=== PATIENT | male | born 2000 | race Caucasian/White ===

== ENCOUNTER 2022-06-13 10:33 | Emergency (ER) | payer OTHER, SELFPAY ==
[2022-06-13 11:00] VITALS: BP 146/82; PULSE 76; RESP 18; TEMP 36.6; O2SAT 98; BMI 32.3
--- NOTE | 2022-06-13 11:39 | ED_ITS ---
HPI - Skin/Abscess/Foreign Bdy General Chief complaint: Skin/Abscess/Foreign Body Stated complaint: L leg spider bite Time Seen by Provider: 06/13/22 11:35 Source: patient Mode of arrival: ambulatory History of Present Illness HPI narrative: 22-year-old male with no significant past medical history presenting to the ED complaining of suspected insect or spider bite to left knee x3 days. Reports was small kiran yesterday which tried to pop it himself at home. Denies fever, chills, joint pain, decreased ROM, numbness, tingling MD complaint: insect bite/sting and abscess/boil Related Data Previous Rx's Medication Instructions Recorded cephalexin 500 mg capsule 500 mg PO QID 7 days #28 caps 06/13/22 doxycycline hyclate 100 mg tablet 100 mg PO BID 7 days #14 tabs 06/13/22 Allergies Allergy/AdvReac Type Severity Reaction Status Date / Time No Known Allergies Allergy Verified 06/13/22 11:00 Review of Systems Review of Systems: Constitutional: No Weight loss, No Fever, No Chills ENT/Mouth: No Ear Pain, No Nasal Congestion, No sore throat, No Rhinorrhea, No Swallowing Difficulty Cardiovascular: No Chest Pain, No SOB Respiratory: No Cough, No Sputum, No Wheezing Gastrointestinal: No Nausea, No Vomiting, No Diarrhea, No Constipation, No Abdominal pain Genitourinary: No Dysuria, No Urinary Frequency, No Hematuria, No Flank Pain Musculoskeletal: No joint pain, No Myalgias, No Joint Swelling Skin: + Skin Lesions, No rash Neuro: No Weakness, No Numbness, No Paresthesias Yes all other systems are reviewed and are negative Constitutional: Constitutional: Reports as per [facility] Past Medical History Attestation statement: The following information was validated with the patient. Social History Social History Advance Directives: No Advance Directives Information Provided: No Physical Exam Vital Signs: Vital Signs: Last Vital Signs Temp 97.8 F 06/13/22 11:00 Pulse 76 06/13/22 11:00 Resp 18 06/13/22 11:00 BP 146/82 H 06/13/22 11:00 Pulse Ox 98 06/13/22 11:00 O2 Del Method 06/13/22 11:00 BMI result Body Mass Index 32.3 Const: General: cooperative, healthy appearing and no acute distress Orientation/consciousness: patient oriented x3 Limitations: no limitations HEENT: Head: Yes normal to inspection and Yes atraumatic Ears: hearing grossly normal bilaterally General nose exam: Normal external nose present Face and sinus: Yes normal facial exam Eyes: General: appearance normal, both eyes and all related structures EOM: EOMs intact bilaterally Neck: Neck: Yes normal visual inspection and Yes no meningeal signs Resp: Effort & Inspection: normal respiratory effort and no respiratory distress Cardio: Rate: regular rate Heart sounds: S1 normal heart sound present and S2 normal heart sound present Skin: Rashes: no rashes Neuro: General: patient oriented x3, tone normal and no meningeal signs Gait exam (Neuro): Normal gait present Extrem: Other: Left knee with small bite area to medial aspect with surrounding erythema. + superficial induration. No fluctuance, no streaking, no warmth. Full range of motion to knee intact without pain. General: Yes full ROM and Yes capillary ref ill normal Course Course Course Narrative: COVID-19 negative MDM - Skin/Abscess/Foreign Bdy MDM Narrative Medical decision making narrative: 22-year-old male with no significant past medical history presenting to the ED complaining of suspected insect or spider bite to left knee x3 days. On exam vital signs stable, NAD, physical exam as above with early cellulitis/induration to medial aspect of left knee. Appear superficial, full range of motion to joint intact, low suspicion for septic joint, septic arthritis. No drainable abscess at this time. Patient also requesting COVID-19 testing, asymptomatic at this time Plan: COVID-19 testing, few antibiotics Had lengthy discussion with patient to watch area closely and return with any worsening redness, fever, kiran, or pain with ROM Differential Diagnosis Differential diagnosis: Likely abscess of skin or subcutaneous tissue and cellulitis Medical Records Attestation: I reviewed the patient's medical records. Lab Data Attestation: I reviewed the patient's lab results. Labs: Lab Results 06/13/22 Range/Units 11:45 COVID-19 ([facility]) Negative (Negative) COVID-19 Clin Com See Note Discharge Plan Discharge Clinical Impression: Cellulitis, Insect bite Patient Disposition: Home, Self-Care Instructions: Cellulitis (ED), Warm Compress or Soak (ED) Additional Instructions: you have cellulitis your knee, and possibly an early abscess which is not drainable at this time Doxycycline and Keflex are antibiotics please take as prescribed. Apply warm compresses. If area worsens, becomes more swollen, red, becomes a pimple kiran, you have pain with knee range of motion or have fever return to the ED immediately Prescriptions: New cephalexin 500 mg capsule 500 mg PO QID 7 Days Qty: 28 0RF doxycycline hyclate 100 mg tablet 100 mg PO BID 7 Days Qty: 14 0RF Referrals: Physician,None [Primary Care Provider] - 3 days (For follow-up)
[2022-06-13] MEDS: cephALEXin 500 MG CAPSULE PO (11:53)
[2022-06-13 12:08] LABS: COVID-19 Test Negative (Negative); IDNOW Serial# 9DB6401D
== END 2022-06-13 12:22 | disposition home or self-care (01) ==
PROVIDERS: Physician Assistant; Emergency Provider Emergency Medicine
DX: S80.262A Insect bite (nonvenomous), left knee, initial encounter (principal); L03.116 Cellulitis of left lower limb; Y92.9 Unspecified place or not applicable; Z20.822 Contact with and (suspected) exposure to COVID-19
CPT/HCPCS: 87635; 99283

== ENCOUNTER 2022-07-07 17:02 | Emergency (ER) | payer OTHER, SELFPAY ==
[2022-07-07 17:13] VITALS: BP 140/85; PULSE 83; RESP 14; TEMP 36.6; O2SAT 99; BMI 30.4
[2022-07-07 17:30] LABS: Basophils Percent Auto 0.4 % (0-2); Eosinophils Absolute Auto 0.3 X10*3/uL (0.0-0.4); Eosinophils Percent Auto 3.7 % (0-4); Hematocrit 41.1 % (42.0-52.0); Hemoglobin 13.9 g/dl (14.0-18.0); Imm Gran Abs Auto 0.05 X10*3/uL (0.00-0.03); Imm Gran Pct Auto 0.6 % (0.0-0.4); Lymphocytes Absolute Auto 2.3 X10*3/uL (1.2-4.9); Lymphocytes Percent Auto 27.2 % (20-40); MANUAL DIFF FLAG NO; Mean Corpuscular HGB Conc 33.8 g/dl (31.0-36.0); Mean Corpuscular Hemoglobin 30.5 pg (27.0-33.0); Mean Corpuscular Volume 90.1 fL (80.0-98.0); Mean Platelet Volume 10.4 fL (9.4-12.4); Monocytes Absolute Auto 0.7 X10*3/uL (0.1-1.2); Monocytes Percent Auto 8.7 % (2-11); Neutrophils Percent Auto 59.4 % (45-73); Platelet Count 223 X10*3/uL (160-400); Red Blood Count 4.56 X10*6/uL (4.60-5.80); Red Cell Distribution Width 12.1 % (11.0-16.0); White Blood Count 8.4 X10*3/uL (4.8-10.8)
[2022-07-07 17:46] LABS: Lactic Acid 0.8 mmol/L (0.5-2.0)
[2022-07-07 17:48] LABS: Anion Gap 16 (12-20); Blood Urea Nitrogen 11 mg/dL (9-16); Calcium 8.7 mg/dL (8.4-10.2); Carbon Dioxide 24 mmol/L (22-29); Chloride 103 mmol/L (96-108); Creatinine Clr Calc Pharmacy 151.3; Estimated Glomerular Filt Rate > 60; Glucose Random 126 mg/dL (60-115); Potassium 3.8 mmol/L (3.3-5.1); Sodium 139 mmol/L (135-145)
== END 2022-07-07 22:38 | disposition left against medical advice (07) ==
LOC: HO.ED 21:21
PROVIDERS: Emergency Provider Emergency Medicine
DX: M79.604 Pain in right leg (principal); M79.89 Other specified soft tissue disorders
CPT/HCPCS: 36415; 80048; 83605; 85025; 87040; 99281; 99283

== ENCOUNTER 2022-07-09 18:57 | Emergency (ER) | payer OTHER, SELFPAY ==
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
--- NOTE | ~2022-07-09 | US_ITS ---
EXAMINATION: US VENOUS ULTRASOUND WITH DOPPLER LOWER EXTREMITY, RIGHT CLINICAL INFORMATION: Swelling, redness, pain COMPARISON: None TECHNIQUE: Ultrasound of the deep veins is performed from the hip to the calf with compression sonography and color and pulse Doppler assessment. Spectral analysis with color-flow imaging is performed. FINDINGS: There is normal venous compression and respiratory variation and augmented flow. The visualized common femoral vein, superficial femoral vein, profunda femoral vein, popliteal vein, and the trifurcation region shows no evidence of deep venous thrombosis. 4.3 x 0.7 x 1.5 cm fluid collection seen in the popliteal fossa consistent with a Farah's cyst. Multiple enlarged right inguinal lymph nodes the largest measuring 4 x 1.1 x 2.1 cm. These retain an echogenic central fatty hilum, a benign morphologic feature. If the patient's symptoms persist, followup ultrasound in 5 days 7 days might be of value to exclude proximal propagation from a non-visualized calf vein. US/US venous duplex LE RT IMPRESSION: No DVT demonstrated in the right lower extremity. Enlarged right inguinal lymph nodes, nonspecific, possibly reactive.
[2022-07-09 21:15] VITALS: BP 122/52; PULSE 70; RESP 16; TEMP 36.4; O2SAT 98; BMI 30.4
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
[2022-07-09 23:17] VITALS: BP 118/62; PULSE 62; RESP 12; TEMP 36.1; O2SAT 99
== END 2022-07-09 23:24 | disposition home or self-care (01) ==
PROVIDERS: Emergency Provider Internal Medicine
DX: L03.115 Cellulitis of right lower limb (principal); M71.21 Synovial cyst of popliteal space [Baker], right knee; R59.1 Generalized enlarged lymph nodes
CPT/HCPCS: 73590; 93971; 99284

== ENCOUNTER → 2025-04-20 08:20 | Outpatient (BNV) | payer OTHER, SELFPAY | PROVIDERS: Emergency Provider Emergency Medicine; Visit Provider Radiology Diagnostic Radiology | DX: M79.89 Other specified soft tissue disorders (principal) | CPT/HCPCS: 73630 ==

== ENCOUNTER 2025-04-20 08:46 | Emergency (ER) | payer OTHER, SELFPAY ==
--- NOTE | ~2025-04-20 | XR_ITS ---
EXAMINATION: XR FOOT 3 OR MORE VIEWS LEFT HISTORY: lt foot injury/swelling COMPARISON: There are no prior studies available for comparison. FINDINGS: Three views of the left foot are submitted. Osseous mineralization is normal. There is no fracture or dislocation. The joint spaces are preserved. There is lateral soft tissue swelling. XR/XR foot LT min 3V IMPRESSION: Lateral soft tissue swelling. No evidence of fracture of the left foot. Electronically signed by: Ze Valentin MD 04/20/2025 09:26 AM EDT
[2025-04-20 08:57] VITALS: BP 135/74; PULSE 78; RESP 16; TEMP 36.7; O2SAT 99; BMI 32.7
--- NOTE | 2025-04-20 09:24 | ED_ITS ---
HPI - Extremity Injury (Lower) General Chief Complaint: Extremity Injury, Lower Stated Complaint: L foot swollen, work inj Time Seen by Provider: 04/20/25 09:00 Source: patient Mode of arrival: ambulatory Limitations: no limitations History of Present Illness ED Provider: JAMIE DOTSON PA-C HPI Narrative: 24 year old male presents to the ED today for evaluation of left foot pain/ swelling x2 days. He reports using a pita at work to transport a file cabinet when the pita dropped onto his left foot 5 days ago. Admits to immediate pain however was able to walk without difficulty. He [place] going river tubing yesterday and began noticing swelling/ redness to the top of his foot, in the area where he dropped the pita. Denies sustaining any injury/trauma during tubing. Denies any open wounds/ insect or tick bites. Denies IV drug use. Denies fever, chills, numbness/tingling/weakness of the LLE. Reports taking motrin at home with improvement, last dose was last night. Related Data Previous Rx's ?Medication ?Instructions ?Recorded cephalexin 500 mg capsule 500 mg PO QID 7 days #28 cap s 06/13/22 doxycycline hyclate 100 mg tablet 100 mg PO BID 7 days #14 tabs 06/13/22 doxycycline monohydrate 100 mg 100 mg PO BID #20 caps 07/09/22 capsule cephalexin 500 mg capsule 500 mg PO QID 7 days #28 cap s 04/20/25 doxycycline hyclate 100 mg capsule 100 mg PO BID 7 day s #14 caps 04/20/25 Allergies Allergy/AdvReac Type Severity Reaction Status Date / Time No Known Allergies Allergy Verified 04/20/25 08:59 Review of Systems 2 Review of Systems: Constitutional: No fever, chills, fatigue, night sweats, weight changes ENT/Mouth: No ear pain, hearing loss, nasal congestion, sinus pain, rhinorrhea, sore throat Eyes: No eye pain, swelling, redness, vision changes, discharge Cardio: No chest pain, palpitations, GARZA, orthopnea, peripheral edema Pulm: No SOB, cough, sputum, wheezing, dyspnea, hemoptysis GI: No nausea, vomiting, hematemesis, abdominal pain, diarrhea, constipation, hematochezia, melena : No irregular bleeding, dysuria, frequency, urgency, hesitancy, hematuria, flank pain, urinary flow changes, urinary incontinence or retention MSK: No back pain, neck pain, joint pain, myalgias, +L foot pain Skin: No lesions, rashes Neuro: No weakness, numbness, paresthesias, LOC, dizziness, headache Psych: No anxiety/panic, depression, SI/HI, AH/VH All other systems reviewed and are negative. [facility] Past Medical History Attestation statement: The following information was validated with the patient. Source: old records reviewed and nursing notes reviewed Social History Social History Patient Tobacco Use Status: Never used Tobacco Advance Directives: No Advance Directives Information Provided: Yes Do you have a plan to hurt others: No Plan Physical Exam 2 Vital Signs: Vital Signs: Last Vital Signs Temp 98.0 F 04/20/25 08:57 Pulse 78 04/20/25 08:57 Resp 16 04/20/25 08:57 BP 135/74 04/20/25 08:57 Pulse Ox 99 04/20/25 08:57 O2 Del Method Room Air 04/20/25 08:57 BMI result Body Mass Index 32.7 vital signs stable, afebrile General: Well appearing, in no acute distress. Skin: +see below Head: Normocephalic, atraumatic. EENT: Hearing is intact b/l. Conjunctiva clear. Sclera is anicteric. PERRLA. EOM intact. Moist mucous membranes.? Cardiac: Chest wall symmetric. RRR Lungs: Normal respiratory effort without accessory muscle use. CTA bilaterally Ext: +left foot with noted swelling/ erythema to dorsal aspect extending from L 3rd-5th toes proximally to mid foot, blanchable, warm, ttp. no streaking. no crepitus. no fluctuance. FROM intact to all toes. no open wounds, ulcers. skin intact to webbed spaces. sensation intact, 2+ dp/pt pulse intact. no calf tenderness Neuro: AOx3. Normal speech. Ambulating with steady gait Course Course Course Narrative: 1023 -- x-ray left foot showing lateral soft tissue swelling without evidence of fracture. CBC without leukocytosis or left shift. No anemia. H&H stable. Chemistry without acute electrolyte abnormality requiring intervention. No ARMEN. CRP elevated at 3.65. > I have concern for cellulitic skin infection. Patient denies any history of IV drug use. No history of gout. No recent tick or insect bites. > discussed workup results with patient. Will place him on a course of Keflex and doxycycline. Area of erythema outlined with skin pen. Discussed return precautions. Patient has remained stable throughout ED visit today. Discussed worrisome signs and symptoms and when to return to the ED. All questions answered at this time. Patient is agreeable with disposition and stable for discharge. Medications Administered Discontinued Medications Generic Name Dose Route Start Last Admin Trade Name Freq PRN Reason Stop Dose Admin Ketorolac Tromethamine 30 mg 04/20/25 09:28 04/20/25 09:41 Ketorolac Tromethamine 30 Mg/Ml Vial IM 04/20/25 09:29 30 mg ONCE ONE Administration Medical Decision Making Medical Decision Making [facility] Narrative: This patient presents with local erythema, warmth, swelling concerning for cellulitis. There is sensitivity/pain to light touch around the erythematous area of L foot. No lymphangitic spread visible and no fluid pockets or fluctuance to suggest abscess. Low concern for osteomyelitis or DVT. No immune compromise, bullae, pain out of proportion, or rapid progression concerning for necrotizing fasciitis. I have also considered fracture, contusion. Labs and xr reviewed. In ED: area of erythema outlined, toradol given. Rx: Cephalexin 500mg PO q6hrs, doxycycline 100mg PO BID. Disposition: No evidence of serious bacterial illness requiring admission for IV antibiotics. Nontoxic appearing, VSS. Low risk for treatment failure based on history. Will discharge home with PO antibiotics and return precautions discussed at bedside. Differential Diagnosis Differential Diagnoses: The differential diagnosis associated with the presentation includes As above Admission/Observation Not indicated Lab Data [facility] Lab Attestation statement: I reviewed the patient's lab results. as above 04/20/25 09:53 04/20/25 09:53 Labs: Lab Results 04/20/25 Range/Units 09:53 WBC 8.8 (4.8-10.8) X10*3/uL RBC 4.74 (4.60-5.80) X10*6/uL Hgb 14.4 (14.0-18.0) g/dl Hct 42.5 (42.0-52.0) % MCV 89.7 (80.0-98.0) fL MCH 30.4 (27.0-33.0) pg MCHC 33.9 (31.0-36.0) g/dl RDW 12.5 (11.0-16.0) % Plt Count 184 (160-400) X10*3/uL MPV 10.2 (9.4-12.4) fL Immature Gran % (Auto) 0.3 (0.0-0.4) % Neut % (Auto) 73.1 H (45-73) % Lymph % (Auto) 14.0 L (20-40) % [place] % (Auto) 10.4 (2-11) % Eos % (Auto) 2.0 (0-4) % Baso % (Auto) 0.2 (0-2) % Lymph # (Auto) 1.2 (1.2-4.9) X10*3/uL [place] # (Auto) 0.9 (0.1-1.2) X10*3/uL Eos # (Auto) 0.2 (0.0-0.4) X10*3/uL Baso # (Auto) 0.0 (0.0-0.2) X10*3/uL Abs Immat Gran (auto) 0.03 (0.00-0.03) X10*3/uL Absolute Neuts (auto) 6.5 (2.0-8.3) x10*3/uL Absolute Nucleated RBC 0.000 (0.0-0.012) X10*3/uL Nucleated RBC % (auto) 0.0 (0.0-0.2) /100WBC Sodium 141 (135-145) mmol/L Potassium 3.9 (3.3-5.1) mmol/L Chloride 108 (96-108) mmol/L Carbon Dioxide 24 (22-29) mmol/L Anion Gap 13 (12-20) BUN 11 (9-16) mg/dL Creatinine 0.69 (0.5-1.4) mg/dL Estim Creat Clear Calc 185.2 Estimated GFR > 60 Random Glucose 91 (60-115) mg/dL Calcium 9.2 (8.4-10.2) mg/dL C-Reactive Protein 3.65 H (< or = 0.50) mg/dL Independent Interpretation I performed an independent interpretation of an: Plain X-Ray Interpretation: xr left foot without noted fracture Radiology Impression Discussion of test interpretation with radiology: I have reviewed the radiologist's reading. Radiologist Impression: Date of Service: 04/20/25 Procedure(s): XR foot LT min 3V Accession Number(s): [id number] cc: Generic ED Physician; Physician,None ~ EXAMINATION: XR FOOT 3 OR MORE VIEWS LEFT HISTORY: lt foot injury/swelling COMPARISON: There are no prior studies available for comparison. FINDINGS: Three views of the left foot are submitted. Osseous mineralization is normal. There is no fracture or dislocation. The joint spaces are preserved. There is lateral soft tissue swelling. XR/XR foot LT min 3V IMPRESSION: Lateral soft tissue swelling. No evidence of fracture of the left foot. Electronically signed by: Ze Valentin MD 04/20/2025 09:26 AM EDT RP External Record Review External record reviewed: Inpatient record Prescription Management I considered prescription management with: Pain Medication and Antibiotic (keflex, doxy) Social Determinants Patient?s care significantly limited by Social Determinants of Health including: Other Social Determinant of Health Critical Care Time Critical Care Time Critical Care Time: No Discharge Plan Discharge Clinical Impression: Cellulitis Patient Disposition: Home, Self-Care Instructions: Cellulitis (ED), Warm Compress or Soak (ED) Additional Instructions: You were evaluated in the ED today for redness/swelling to your left foot. The x-ray of the foot does not demonstrate fracture however does note soft tissue swelling. Your blood work does not demonstrate elevated white count however your inflammatory marker is elevated. This, in conjunction with your physical exam findings, I have concern for a cellulitic skin infection. See home care instructions. Treatment for this is with antibiotics. Keflex as an antibiotic that has been sent to your pharmacy. Take this as prescribed every 6 hours. Doxycycline as a 2nd antibiotic that has been sent to your pharmacy. Take this as prescribed every 12 hours. The area of redness was outlined with skin pen today. As discussed, if the redness begins to extend outside this line or if you see a red line extending up your leg despite antibiotic treatment, these are both indications to return to the ED as the infection may be spreading. On doxycycline, do not take pills immediately before going to bed and swallow pills with plenty of water. Avoid direct sunlight, iron, antacids, and Pepto Bismol. Call your provider if you develop new ringing in your ears, new problems hearing, dizziness, difficulty swallowing, rash, abdominal discomfort, nausea, or diarrhea. On a cephalosporin?antibiotic (keflex) softer bowel movements are to be expected. Call your provider if you move your bowels more than 4 times a day, your bowel movements are almost all liquid, or you get a rash.? I recommend you take 600mg ibuprofen every 6 hours or Tylenol 650mg every 6 hours as needed for pain. If needed, you can alternate these medications so that you take one medication every 3 hours. For example, at noon take ibuprofen, then at 3pm take Tylenol, then at 6pm take ibuprofen. Follow up with your outpatient providers. Return with any new or worsening symptoms. In the case of an emergency call 911. In the case of an emergency call 911. Prescriptions: New cephalexin 500 mg capsule 500 mg PO QID 7 Days Qty: 28 0RF doxycycline hyclate 100 mg capsule 100 mg PO BID 7 Days Qty: 14 0RF No Action doxycycline monohydrate 100 mg capsule 100 mg PO BID Qty: 20 0RF cephalexin 500 mg capsule 500 mg PO QID 7 Days Qty: 28 0RF doxycycline hyclate 100 mg tablet 100 mg PO BID 7 Days Qty: 14 0RF Referrals: Physician,None [Primary Care Provider, Medical] Stand Alone Forms: Work/School Release Print Language: Turkish
[2025-04-20] MEDS: Ketorolac Tromethamine 30 MG/ML VIAL IM (09:41)
--- NOTE | 2025-04-20 09:42 | PC.NURSE ---
pt medicated for lt foot pain 05/06
[2025-04-20 09:56] LABS: MANUAL DIFF FLAG NO
[2025-04-20 09:58] LABS: Basophils Percent Auto 0.2 % (0-2); Eosinophils Absolute Auto 0.2 X10*3/uL (0.0-0.4); Hematocrit 42.5 % (42.0-52.0); Hemoglobin 14.4 g/dl (14.0-18.0); Imm Gran Abs Auto 0.03 X10*3/uL (0.00-0.03); Imm Gran Pct Auto 0.3 % (0.0-0.4); Lymphocytes Absolute Auto 1.2 X10*3/uL (1.2-4.9); Mean Corpuscular HGB Conc 33.9 g/dl (31.0-36.0); Mean Corpuscular Hemoglobin 30.4 pg (27.0-33.0); Mean Corpuscular Volume 89.7 fL (80.0-98.0); Mean Platelet Volume 10.2 fL (9.4-12.4); Monocytes Absolute Auto 0.9 X10*3/uL (0.1-1.2); Monocytes Percent Auto 10.4 % (2-11); Neutrophils Absolute Auto 6.5 x10*3/uL (2.0-8.3); Neutrophils Percent Auto 73.1 % (45-73); Platelet Count 184 X10*3/uL (160-400); Red Blood Count 4.74 X10*6/uL (4.60-5.80); Red Cell Distribution Width 12.5 % (11.0-16.0); White Blood Count 8.8 X10*3/uL (4.8-10.8)
[2025-04-20 10:12] LABS: Anion Gap 13 (12-20); Blood Urea Nitrogen 11 mg/dL (9-16); C Reactive Protein 3.65 mg/dL (< or = 0.50); Calcium 9.2 mg/dL (8.4-10.2); Carbon Dioxide 24 mmol/L (22-29); Chloride 108 mmol/L (96-108); Creatinine Clr Calc Pharmacy 185.2; Estimated Glomerular Filt Rate > 60; Glucose Random 91 mg/dL (60-115); Potassium 3.9 mmol/L (3.3-5.1); Sodium 141 mmol/L (135-145)
[2025-04-20 10:58] VITALS: BP 135/74; PULSE 78; RESP 16; TEMP 36.7; O2SAT 99
== END 2025-04-20 10:58 | disposition home or self-care (01) ==
PROVIDERS: Physician Assistant Medical; Emergency Provider Emergency Medicine
DX: L03.116 Cellulitis of left lower limb (principal); M79.672 Pain in left foot
CPT/HCPCS: 36415; 73630; 80048; 85025; 86140; 96372; 99283; 99284; J1885